=== PATIENT | female | born 1935 | race Caucasian/White ===

== ENCOUNTER 2022-10-23 13:03 | Outpatient (REF) | payer MEDICARE, SELFPAY ==
[2022-10-23 14:12] LABS: HCT 39.3 % (36.0-46.0); HGB 12.7 g/dL (11.2-15.7); MCH 30.3 pg (27.0-33.0); MCHC 32.3 % (32.0-36.0); MCV 94 fL (80-95); MPV 8.6 fL (8.0-11.0); Platelet Count 458 10^3/uL (130-400); RBC 4.19 10^6/uL (3.93-5.22); RDW 13.3 % (11.7-14.6); RDW-SD 45.4 fL
[2022-10-23 14:23] LABS: Iron 70 ug/dL (50-170); Total Iron Binding Capacity 256 ug/dL (250-450); Transferrin Sat 27 % (15-50)
[2022-10-23 14:38] LABS: ALT 14 U/L (14-59); AST 13 U/L (15-37); Albumin 3.1 g/dL (3.4-5.0); Alkaline Phosphatase 63 U/L (46-116); Anion Gap 7.2 mmol/L (3-11); BUN 16 mg/dL (7-18); Bilirubin, Total 0.3 mg/dL (0.2-1.0); CO2 28.8 mmol/L (21.0-32.0); Calcium 10.4 mg/dL (8.5-10.1); Chloride 103 mmol/L (98-107); Estimated GFR 54.87 (mL/min/1.73m2); Ferritin 66 ng/mL (8-252); Folate 7.7 ng/mL (8.6-20.0); Glucose 119 mg/dL (74-106); Sodium 139 mmol/L (136-145); TSH (W/Ref FT4) 2.49 uIU/mL (0.36-3.74); Total Protein 7.5 g/dL (6.4-8.2)
== END 2022-10-23 13:04 | disposition home or self-care (01) ==
LOC: NCHCN 13:03
PROVIDERS: Visit Provider Family Medicine
DX: I10 Essential (primary) hypertension (principal); F10.10 Alcohol abuse, uncomplicated; R53.1 Weakness; J44.9 Chronic obstructive pulmonary disease, unspecified; I49.9 Cardiac arrhythmia, unspecified
CPT/HCPCS: 80053; 85027; 82728; 82746; 83540; 83550; 84443

== ENCOUNTER 2022-11-09 03:21 | Outpatient (CLI) | payer MEDICARE, SELFPAY ==
[2022-11-09] MEDS: Inhaler, Assist Device 1 EACH MC (16:18)
[2022-11-09] MEDS: Albuterol HFA 18 GM 200 PUFF INH IH (16:18)
--- NOTE | 2022-11-10 12:53 | W.PFT ---
Date of service: 11/09/22 Time of Service: 15:04 Pulmonary Function Test Result Indications: COPD Interpretation Spirometry: There is no airflow limitation. There is no bronchodilator response.. Lung Volumes: Normal lung volumes Diffusion Capacity: Normal diffusion Airway Pressure: Normal airways resistance Impression Normal pulmonary function testing. Clinical Correlation therefore is recommended.
== END 2022-11-09 03:22 | disposition home or self-care (01) ==
LOC: RT 03:21
PROVIDERS: PCP Family Medicine; Visit Provider Family Medicine
DX: J44.9 Chronic obstructive pulmonary disease, unspecified (principal)
CPT/HCPCS: 94060; 94726; 94729

== ENCOUNTER 2022-11-25 14:00 | Outpatient (REF) | payer MEDICARE, SELFPAY ==
[2022-11-25 15:12] LABS: HCT 36.7 % (36.0-46.0); HGB 11.7 g/dL (11.2-15.7); MCH 29.7 pg (27.0-33.0); MCHC 31.9 % (32.0-36.0); MCV 93 fL (80-95); MPV 8.7 fL (8.0-11.0); Platelet Count 435 10^3/uL (130-400); RBC 3.94 10^6/uL (3.93-5.22); RDW 13.5 % (11.7-14.6); RDW-SD 46.3 fL; WBC 9.04 10^3/uL (4.4-10.8)
[2022-11-25 15:47] LABS: Calcium 10.1 mg/dL (8.5-10.1)
== END 2022-11-25 14:01 | disposition home or self-care (01) ==
LOC: NCHCN 14:00
PROVIDERS: PCP Family Medicine; Visit Provider Family Medicine
DX: F41.8 Other specified anxiety disorders (principal); I10 Essential (primary) hypertension; R53.1 Weakness
CPT/HCPCS: 85027; 82310; 82746

== ENCOUNTER → 2023-01-08 00:05 | Outpatient (CLI) | payer MEDICARE, SELFPAY ==
--- NOTE | 2023-01-08 13:54 | DI.US_ITS ---
APPROVED REPORT EXAM: Comprehensive 2D, Doppler, and color-flow Echocardiogram Patient Location: Out-Patient Machine Operators: Kenneth Young RDMS, RVT Indications: tricuspid regurg Other Information Study Quality: Good Conclusion Normal left ventricular wall thickness and chamber size. Ejection fraction is 55 to 60%. Wall motio n is normal Normal right ventricular size and systolic function Both atria are normal in size Normal tricuspid valve with mild to moderate regurgitation. Estimated right ventricular systolic pre ssure is 35 mmHg There is no other additional structural or hemodynamically significant valvular disease Wall motion Left Ventricle The left ventricle is normal size. The left ventricular systolic function is normal. The left ventric ular ejection fraction is within the normal range. There is normal left ventricular wall thickness. T here is normal LV segmental wall motion. There is no ventricular septal defect visualized. LVEF is 55 %. Right Ventricle The right ventricle is normal size. The right ventricular systolic function is normal. The RVSP is 35 .4 mmHg. Atria The left atrium size is normal. The right atrium size is normal. The interatrial septum is intact wit h no evidence for an atrial septal defect. Aortic Valve The aortic valve is normal in structure. Aortic valve is trileaflet. There is no aortic valvular sten osis. Mitral Valve Mild mitral annular calcification. No evidence of mitral valve stenosis. Trace mitral regurgitation. Tricuspid Valve The tricuspid valve is normal in structure. There is no tricuspid valve stenosis. Mild to moderate tr icuspid regurgitation. Pulmonic Valve The pulmonary valve is normal in structure. There is no pulmonic valvular stenosis. Mild pulmonic reg urgitation. Great Vessels The aortic root is normal in size. The ascending aorta is normal in size. Aortic arch is normal in ca liber. IVC is normal in size and collapses >50% with inspiration. Pericardium There is no pericardial effusion. 2D Dimensions IVSD d PLAX 1.04 cm F: 0.6-1.0 LVPW d PLAX 1.04 cm F: 0.6 - 1.0 LVID d PLAX 3.91 cm F: 3.8 - 5.2 LVDs 2.80 cm F: 2.2 - 3.5 Ao Root d 3.31 cm F: 2.7 - 3.3 RA Area A4C 13.08 cm2 Ao Asc Diam d 3.11 cm F: 2.3 - 3.1 LV EF Teichholz 54.8 % FS 27.95 % M-Mode TAPSE 1.74 cm (M/F) >1.7 LV Diastology MV E' medial 0.055 (>0.07 m/s) E/A Ratio 0.6 LV E/e MED 8.98 (<14) MV E Vmax 0.49 (0.4-1.3 m/s) MV E' lateral 0.053 (>0.1 m/s) MV A Vmax 0.85 (0.4-1.3 m/s) LV E/e LAT 9.36 (<14) MV E/E' medial 8.98 MV E/E' lateral 9.36 MV (E/E' average) 9.17 Aortic Valve LVOT Vmax 0.86 m/s AoV Area Vmax 2.48 cm2 LVOT Peak Grad 2.9 mmHg LVOT Mean Grad 1.6 mmHg LVOT Diam s 2.00 cm AoV Vmax 1.11 m/s Velocity Ratio 0.77 AoV Peak Grad 4.9 mmHg LVOT SV 55.41 mL AoV Mean Grad 3.0 mmHg AoV Area VTI 2.16 cm2 Mitral Valve MV DT 192 (160-240 msec) Pulmonary Valve PV Mean Grad 1.9 mmHg RVOT Peak Gr. 1.16 mmHg RVOT Mean Gr. 0.50 mmHg RVOT VTI 0.116 m RVOT Vmax 0.54 m/s Tricuspid Valve TR Peak Grad 32.3 mmHg TR Vmax 2.85 m/s RA Pressure 3.00 mmHg RVSP (TR) 35.4 mmHg
== END ==
PROVIDERS: PCP Family Medicine; Visit Provider Family Medicine
DX: I07.1 Rheumatic tricuspid insufficiency (principal)
CPT/HCPCS: 93306

== ENCOUNTER 2023-09-29 21:44 | Outpatient (REF) | payer MEDICARE, SELFPAY ==
[2023-09-29 22:03] LABS: BUN 17 mg/dL (7-18); CREATININE 0.9 mg/dL (0.55-1.02); Calcium 10.3 mg/dL (8.5-10.1); Chloride 105 mmol/L (98-107); Estimated GFR 61.87 (mL/min/1.73m2); Glucose 95 mg/dL (74-106); Magnesium 2.1 mg/dL (1.8-2.4); Potassium 4.5 mmol/L (3.5-5.1); Sodium 140 mmol/L (136-145)
== END 2023-09-29 21:45 | disposition home or self-care (01) ==
LOC: NCHCN 21:44
PROVIDERS: PCP Family Medicine; Visit Provider Family Medicine
DX: I48.0 Paroxysmal atrial fibrillation (principal)
CPT/HCPCS: 80048; 83735

== ENCOUNTER 2024-09-14 15:57 | Outpatient (REF) | payer MEDICARE, SELFPAY ==
[2024-09-14 21:53] LABS: Anion Gap 7.2 mmol/L (3-11); BUN 18 mg/dL (7-18); CO2 27.8 mmol/L (21.0-32.0); CREATININE 0.9 mg/dL (0.55-1.02); Calcium 10.5 mg/dL (8.5-10.1); Chloride 107 mmol/L (98-107); Estimated GFR 61.49 (mL/min/1.73m2); Glucose 91 mg/dL (74-106); Potassium 4.7 mmol/L (3.5-5.1); Sodium 142 mmol/L (136-145)
== END 2024-09-14 15:58 | disposition home or self-care (01) ==
LOC: NCHCN 15:57
PROVIDERS: PCP Family Medicine; Visit Provider Family Medicine
DX: I10 Essential (primary) hypertension (principal)
CPT/HCPCS: 80048

== ENCOUNTER 2024-10-24 13:03 | Observation (INO) | payer MEDICARE, SELFPAY ==
[2024-10-24] VITALS (37 sets, daily range): BP systolic 104–151; BP diastolic 46–88; PULSE 68–86; RESP 7–26; TEMP 36–36.9; O2SAT 88–97
--- NOTE | 2024-10-24 13:22 | DI.CT_ITS ---
Exam(s) CT ABDOMEN PELVIS CTA EXAM: CT ABDOMEN PELVIS CTA CLINICAL HISTORY: lower gi bleed. TECHNIQUE: Imaging Protocol: Axial CT angiography was performed with multi-slice acquisition and m ulti-planar and/or 3D reconstructions. CONTRAST MATERIAL: Intravenous: Omnipaque 350 Contrast volume:100mL Oral: No COMPARISON: No exams were available for comparison FINDINGS: ABDOMEN AND PELVIS: Abdomen: Celiac axis/mesenteric arteries: No evidence of occlusion or significant stenosis. Atherosclerotic ca lcification is seen in the superior mesenteric artery. Renal Arteries: No evidence of occlusion or significant stenosis. There is mild atherosclerotic calci fication at the origins of the renal arteries bilaterally. Aorta: No evidence of occlusion or significant stenosis. No aneurysm or dissection. Atherosclerotic calcification is seen. Pelvis: Iliac Arteries: No evidence of occlusion or significant stenosis. Atherosclerotic calcification is p resent. Common Femoral Arteries: No evidence of occlusion or significant stenosis. Atherosclerotic calcifica tion is present. ABDOMEN: Lung bases: Unremarkable. Liver: Normal density. No measurable mass. Portal, Superior Mesenteric, and Splenic Veins: Unremarkable. Gallbladder and Biliary Tract: Status post cholecystectomy. There is intra and extrahepatic bile ginny t dilatation. The common duct measures 1.7 cm. No choledocholithiasis is seen. Pancreas: Normal density, no abnormal calcifications or inflammatory process. Spleen: Normal. Adrenals: There is a 1.7 cm hypodense right adrenal nodule. There is mild thickening of the limbs of the left adrenal gland. There does appear to be a small 0.6 cm hypodense nodule on the left adrenal gland. Kidneys: Normal size, contour and axis. No radiodense stones or obstructive uropathy. There are tiny hypodensities in the kidneys bilaterally. They are too small for further characterization but likely reflect small cysts. No follow-up is recommended. Bowel: There is diverticulosis of the colon without evidence of acute diverticulitis. There is no ev idence of bowel obstruction or bowel wall thickening. There is no evidence of appendicitis. No evid ence of active gastrointestinal bleeding. Peritoneal Cavity: No ascites, collection or mesenteric inflammatory response. No free air. Lymph Nodes: Within normal limits. Bones: There is a left convex thoracolumbar scoliosis. Age-appropriate degenerative changes are seen in the spine. Soft Tissues: Unremarkable. PELVIS: Bladder: Symmetric distention, no gross wall thickening. Reproductive Organs: There is a 3.8 x 3 cm cyst on the right ovary. (Series 28, image 55). Lymph Nodes: Within normal limits. Bones: Within normal limits. IMPRESSION: 1. There is no evidence of active gastrointestinal bleeding at this time. 2. Colonic diverticulosis without evidence of acute diverticulitis. 3. 0.8 x 3 cm right ovarian cyst. Nonemergent pelvic ultrasound should be considered in this postmen opausal patient. 4. Status post cholecystectomy. There is intra and extrahepatic biliary ductal dilatation. This may be due to the post cholecystectomy state. No choledocholithiasis is seen. Follow-up as clinically appropriate. 5. Bilateral hypodense adrenal nodules likely reflecting adenomas. Nonemergent MRI may be obtained f or further characterization. RADIATION DOSE DELIVERED: 1,563.24mGy.cm Total DLP DATA REPOSITORY: All CT scans at this facility are submitted to the National Radiology Data Registry (NRDR) Dose Index Registry (DIR) with the [employer] (ACR). RADIATION OPTIMIZATION: All CT scans at this facility use at least one of these dose optimization te chniques: automated exposure control; mA and/or kV adjustment per patient size (includes targeted exa ms where dose is matched to clinical indication); or iterative reconstruction.
--- NOTE | 2024-10-24 13:24 | ED.GENADUL_ITS ---
Discharge Plan Disposition Patient Disposition: Admit to [facility] Condition: Stable Discharge Details Chief Complaint: GI Bleed Clinical Impression: Acute lower gastrointestinal bleeding Primary Care Provider: Zainab Burk ED Provider: Santy Clark Home Meds and New Rx's Prescriptions: No Action venlafaxine [Effexor XR] 37.5 mg capsule,extended release 24hr 112.5 mg PO DAILY Xarelto 20 mg tablet 20 mg PO DAILY Rx Instructions: must administer with evening meal diltiazem HCl 120 mg capsule,ext.rel 24h degradable 120 mg PO BID [facility] General Mode of arrival: EMS . Date/Time Provider Initiated Documentation: 10/24/24 13:04 . Limitations to Documentation: no limitations . Information obtained by: patient . History of Present Illness 89 year old F presents to the emergency department with the chief complaint of bloody bowel movements, described as moderate, Patient started experiencing this day(s) (4) and it has been constant. No relieving factors improve symptom(s), No exacerbating factors reported . Patient notes shortness of breath; denies fever/chills and nausea/vomiting. Patient did receive the following treatments prior to arrival, none Related Data Home Medications ?Medication ?Instructions ?Recorded ?Confirmed diltiazem HCl 120 mg 120 mg PO BID 10/24/24 10/24/24 capsule,extended release 24 hr, controlled rivaroxaban 20 mg tablet (Xarelto) 20 mg PO DAILY 10/24/24 10/24/24 venlafaxine 37.5 mg 112.5 mg PO DAILY 10/24/24 10/24/24 capsule,extended release 24 hr (Effexor XR) Allergies Allergy/AdvReac Type Severity Reaction Status Date / Time Penicillins Allergy Intermediate Hives Verified 10/24/24 13:11 General Stated Complaint: GI Bleed RAMOS: 2 Review of Systems All systems reviewed & are unremarkable except as noted in HPI and below Constitutional Constitutional: Denies chills, Denies fever(s) and Reports weakness Cardiovascular Cardiovascular: Denies chest pain and Reports dyspnea Respiratory Respiratory: Denies cough and Reports dyspnea Gastrointestinal Gastrointestinal: Denies abdominal pain, Reports hematochezia, Denies nausea and Denies vomiting Neurologic Neurologic: Reports weakness Psychiatric Psychiatric: Denies depression Exam Const General: no acute distress Orientation: alert HENMT Head: normal to inspection Ears: external ears normal General nose exam: external nose normal Mouth: moist mucous membranes Eyes General: appearance normal, both eyes and all related structures Neck Neck: normal visual inspection Resp Effort & Inspection: normal respiratory effort and able to speak in complete sentences Auscultation: clear to auscultation bilaterally Cardio Rate: regular rate GI Palpation: soft and nontender Skin General skin exam: no rashes or lesions noted Neuro General: patient alert and patient oriented x3 Extrem General: normal to inspection Psych Mental Status: mental status grossly normal Course Vital Signs Vital signs: Vital Signs Respiratory Rate 26 H 10/24/24 13:03 Temperature 36.3 C L 10/24/24 13:17 Temperature Source Oral 10/24/24 13:17 Pulse 71 10/24/24 13:17 Pulse 71 10/24/24 13:16 Respiratory Rate 16 10/24/24 13:17 Blood Pressure 138/49 L 10/24/24 13:17 Blood Pressure Mean 78 10/24/24 13:16 Blood Pressure Position Supine 10/24/24 13:17 Pulse Oximetry 95 10/24/24 13:17 Oxygen Delivery Method Room Air 10/24/24 13:17 Oxygen Flow Rate 0 10/24/24 13:17 Pain Level 0 10/24/24 13:17 Medical Decision Making 89-year-old female with a history of A-fib on rivaroxaban comes in with 4 days of diarrhea and bloody stools. Denies any severe abdominal pain. She is states she feels generally weak and has shortness of breath. Denies any recent travels or fevers, no chest pain or chest pressure. She has a soft nontender abdomen. Clear lung sounds and is alert and oriented x 4. Given the bloody stools that weakness and shortness of breath I suspect she could be anemic. Will check a CBC, CMP, type and screen and obtain a CTA of the abdomen pelvis to evaluate for evidence of active extravasation. Patient with mild anemia with hemoglobin 10.2. CTA without evidence of active extravasation. Patient is hemodynamically stable. On rectal exam does have a small amount of blood on exam from the rectum. No visible bleeding hemorrhoids. Given she is on anticoagulation will discuss with hospitalist about observation admission and holding her anticoagulation. Quality:SDOH Health Related Social Needs: No Data to Display PFSH All Active Problems (Updated 10/24/24 @ 16:04 by Santy Clark MD) Acute lower gastrointestinal bleeding (Acute) Social History Smoking/Tobacco Use Status: Never Smoking risk assessment performed?: Yes Alcohol Intake: current Alcohol Intake frequency: 0-2 drinks per day Alcohol type: wine Drug use: Never Substance use type: does not use Do you feel safe at home: Yes Do you feel safe in your relationship?: Yes
[2024-10-24 13:36] LABS: Abs Immature Grans 0.06 10^3/uL (0.0-0.06); Absolute Basophil Count 0.08 10^3/uL (0.0-0.2); Absolute Lymphocyte Count 1.92 10^3/uL (1.2-3.4); Basophils % 0.7 %; Eosinophils % 0.4 %; HCT 32.8 % (36.0-46.0); HGB 10.2 g/dL (11.2-15.7); Immature Grans % 0.5 %; Lymphocytes % 17.2 %; MCH 27.6 pg (27.0-33.0); MCHC 31.1 % (32.0-36.0); MCV 89 fL (80-95); MPV 8.5 fL (8.0-11.0); Monocytes % 7.5 %; Neutrophils % 73.7 %; Platelet Count 351 10^3/uL (130-400); RBC 3.69 10^6/uL (3.93-5.22); RDW 14.3 % (11.7-14.6); WBC 11.14 10^3/uL (4.4-10.8)
[2024-10-24 13:38] LABS: Absolute Eosinophil Count 0.04 10^3/uL (0.0-0.7); Absolute Monocyte Count 0.84 10^3/uL (0.1-0.8); Absolute Neutrophil Count 8.21 10^3/uL (1.2-6.7)
[2024-10-24 13:55] LABS: ALT 16 U/L (14-59); AST 11 U/L (15-37); Albumin 3.1 g/dL (3.4-5.0); Alkaline Phosphatase 78 U/L (46-116); Anion Gap 8.8 mmol/L (3-11); BUN 16 mg/dL (7-18); Bilirubin, Total 0.2 mg/dL (0.2-1.0); CO2 28.2 mmol/L (21.0-32.0); Calcium 9.7 mg/dL (8.5-10.1); Chloride 103 mmol/L (98-107); Estimated GFR 54.19 (mL/min/1.73m2); Glucose 151 mg/dL (74-106); Lipase 39 U/L (<78); Potassium 4.1 mmol/L (3.5-5.1); Sodium 140 mmol/L (136-145); Total Protein 7.2 g/dL (6.4-8.2)
[2024-10-24] MEDS: Normal Saline - Diluent 50 ML VIAL IJ (14:33)
[2024-10-24] MEDS: Omnipaque 350 MG/ML 100 ML BTL IJ (14:35)
[2024-10-24 14:51] LABS: INR 1.2 (0.9-1.1); PTT Activated 24.4 sec (20.6-30.2)
--- NOTE | 2024-10-24 15:56 | W.PM.HP.N ---
Date of service: 10/24/24 Time of Service: 15:56 Assessment and Plan Assessment and plan (1) Bright red blood per rectum: Status: Acute Assessment and plan: - Likely lower GI bleed given description of bright red blood - Stool occult positive in the emergency department - Without significant anemia as hemoglobin was 10.2, though last hemoglobin was from November 2022 which is 11.7 - No active bleed noticed in the emergency department or on CT angio of the abdomen pelvis - Hold Xarelto - Follow-up a.m. CBC - If patient does have recurrence of bloody bowel movement we will consult surgery for consideration of lower endoscopy (2) Afib: Status: Chronic Assessment and plan: - Continue home diltiazem - Hold Xarelto as noted above (3) Depression: Status: Chronic Assessment and plan: - Continue home Effexor (4) Sleep apnea: Status: Acute Assessment and plan: -CPAP HS History of Present Illness History of Present Illness Chief Complaint: BRBPR Narrative: 89-year-old female with a past medical history of A-fib on diltiazem and Xarelto and depression who presents to the emergency department complaints of 4 days of diarrhea and bloody stools. Patient states that over the last few days she has had a diarrhea with some bloody stools but denies any abdominal pain. She also complains of some weakness and shortness of breath denies any headache, lightheadedness, dizziness, chest pain, nausea or vomiting. In the emergency department the patient was noted as having normal vital signs, CBC with a hemoglobin of 10.2 and normal CMP. She did have positive stool occult, but CT angio of the abdomen pelvis did not show any acute GI bleeding. However, given description of bloody bowel movements patient being on Xarelto, emergency room physician paged hospitalist for admission of the patient to observation status for concern for bright red blood for rectum. Review of Systems All systems reviewed & are unremarkable except as noted in HPI and below PFSH All Active Problems (Updated 10/24/24 @ 17:28 by Candelario Godinez MD) Sleep apnea (Acute) Depression (Chronic) Afib (Chronic) Bright red blood per rectum (Acute) Acute lower gastrointestinal bleeding (Acute) Social History Smoking/Tobacco Use Status: Never Smoking risk assessment performed?: Yes Alcohol Intake: current Alcohol Intake frequency: 0-2 drinks per day Alcohol type: wine Drug use: Never Substance use type: does not use Do you feel safe at home: Yes Do you feel safe in your relationship?: Yes Meds Allergies and Home Medications Allergies Allergy/AdvReac Type Severity Reaction Status Date / Time Penicillins Allergy Intermediate Hives Verified 10/24/24 13:11 Home Medications ?Medication ?Instructions ?Recorded ?Confirmed ?Type diltiazem HCl 120 mg 120 mg PO BID 10/24/24 10/24/24 History capsule,extended release 24 hr, controlled rivaroxaban 20 mg tablet (Xarelto) 20 mg PO DAILY 10/24/24 10/24/24 History venlafaxine 37.5 mg 112.5 mg PO DAILY 10/24/24 10/24/24 History capsule,extended release 24 hr (Effexor XR) Exam Narrative Exam Narrative: well appearing older female sitting up in the chair in no acute distress, AOx4, heart RRR, lungs CTAB, abdomen soft, non-tender, non-distended Results Labs 10/24/24 13:30 10/24/24 13:30 Labs: Laboratory Results - last 24 hr 10/24/24 13:30 WBC 11.14 H RBC 3.69 L Hgb 10.2 L Hct 32.8 L MCV 89 MCH 27.6 MCHC 31.1 L RDW 14.3 Plt Count 351 MPV 8.5 Immature Gran % 0.5 Neutrophils % 73.7 Lymphocytes % 17.2 Monocytes % 7.5 Eosinophils % 0.4 Basophils % 0.7 Nucleated RBC % 0.0 Absolute Neutrophils 8.21 H Absolute Lymphocytes 1.92 Absolute Monocytes 0.84 H Absolute Eosinophils 0.04 Absolute Basophils 0.08 PT 12.0 H INR 1.2 H APTT 24.4 Sodium 140 Potassium 4.1 Chloride 103 Carbon Dioxide 28.2 Anion Gap 8.8 BUN 16 Creatinine 1.0 Est GFR (CKD-EPI 2020) 54.19 Glucose 151 H Calcium 9.7 Magnesium 2.0 Total Bilirubin 0.2 AST 11 L ALT 16 Alkaline Phosphatase 78 Total Protein 7.2 Albumin 3.1 L Lipase 39 ABO/Rh O Negative Antibody Screen NEGATIVE Last Vital Signs Temp 97.3 F L 10/24/24 13:17 Pulse 75 10/24/24 14:50 Resp 15 10/24/24 14:50 BP 122/53 L 10/24/24 14:16 Pulse Ox 94 10/24/24 14:50 Time Spent Time spent with Patient: >75 minutes Time was spent: preparing to see the patient(eg.review tests), obtaining and/or reviewing separately otained hiistory, ordering medications,tests, procedures, referring, communicating with other health youth career specialist, indepentently interpreting results, counseling the patient and care coordination
--- NOTE | 2024-10-24 18:03 | W.PC.ACHO ---
Registration Status: Primary Language: Preferred Language: ED Information & Data Chief Complaint GI Bleed 10/24/24 13:25 Triage Note pt with 1 week of bloody 10/24/24 13:17 diarrhea, no fever/chills, no abd pain, on blood thinners, weak today and appears SOB. Most Recent Vital Signs Temperature 36 C L 10/24/24 17:50 Temperature Source Temporal Artery Scan 10/24/24 17:50 Pulse 86 10/24/24 17:50 Pulse 84 10/24/24 17:01 Respiratory Rate 18 10/24/24 17:50 Respiratory Effort Normal 10/24/24 17:50 Respiratory Depth Normal 10/24/24 17:50 Respiratory Pattern Normal 10/24/24 17:50 Blood Pressure 127/61 10/24/24 17:50 Blood Pressure Mean 83 10/24/24 17:50 Blood Pressure Position Supine 10/24/24 13:17 Pulse Oximetry 95 10/24/24 17:50 Oxygen Delivery Method Room Air 10/24/24 17:50 Oxygen Flow Rate 0 10/24/24 17:50 Pain Level 0 10/24/24 17:50 Allergies Penicillins Allergy (Intermediate, Verified 10/24/24 13:11) Hives Precautions Isolation Standard precaution 10/24/24 13:18 Active Medications Generic Name Dose Route Start Last Admin Trade Name Mt PRN Reason Stop Dose Admin Iohexol 100 ml 10/24/24 14:45 10/24/24 14:35 Omnipaque 350 Mg/Ml 100 Ml Btl IJ 11/23/24 23:59 100 ml DIRECTED ADALBERTO Administration Sodium Chloride 50 ml 10/24/24 14:45 10/24/24 14:33 Normal Saline - Diluent 50 Ml Vial IJ 50 ml .FOR DI USE ADALBERTO Administration IV IV Catheter Type [Right Peripheral IV Antecubital] IV Catheter Type [Left Peripheral IV Antecubital] IV Catheter Gauge [Right 18 Antecubital] IV Catheter Gauge [Left 20 Antecubital] Diet Orders Category Date Time Status Regular/Normal [DIET] Nutrition 10/24/24 Dinner Active Diagnostics 10/24/24 Range/Units 13:30 WBC 11.14 H (4.4-10.8) 10^3/uL RBC 3.69 L (3.93-5.22) 10^6/uL Hgb 10.2 L (11.2-15.7) g/dL Hct 32.8 L (36.0-46.0) % MCV 89 (80-95) fL MCH 27.6 (27.0-33.0) pg MCHC 31.1 L (32.0-36.0) % RDW 14.3 (11.7-14.6) % Plt Count 351 (130-400) 10^3/uL MPV 8.5 (8.0-11.0) fL Immature Gran % 0.5 % Neutrophils % 73.7 % Lymphocytes % 17.2 % Monocytes % 7.5 % Eosinophils % 0.4 % Basophils % 0.7 % Nucleated RBC % 0.0 (0.0-0.3) % Absolute Neutrophils 8.21 H (1.2-6.7) 10^3/uL Absolute Lymphocytes 1.92 (1.2-3.4) 10^3/uL Absolute Monocytes 0.84 H (0.1-0.8) 10^3/uL Absolute Eosinophils 0.04 (0.0-0.7) 10^3/uL Absolute Basophils 0.08 (0.0-0.2) 10^3/uL PT 12.0 H (9.1-11.1) sec INR 1.2 H (0.9-1.1) APTT 24.4 (20.6-30.2) sec Sodium 140 (136-145) mmol/L Potassium 4.1 (3.5-5.1) mmol/L Chloride 103 (98-107) mmol/L Carbon Dioxide 28.2 (21.0-32.0) mmol/L Anion Gap 8.8 (3-11) mmol/L BUN 16 (7-18) mg/dL Creatinine 1.0 (0.55-1.02) mg/dL Est GFR (CKD-EPI 2020) 54.19 (mL/min/1.73m2) Glucose 151 H (74-106) mg/dL Calcium 9.7 (8.5-10.1) mg/dL Magnesium 2.0 (1.8-2.4) mg/dL Total Bilirubin 0.2 (0.2-1.0) mg/dL AST 11 L (15-37) U/L ALT 16 (14-59) U/L Alkaline Phosphatase 78 (46-116) U/L Total Protein 7.2 (6.4-8.2) g/dL Albumin 3.1 L (3.4-5.0) g/dL Lipase 39 (<78) U/L ABO/Rh O Negative Antibody Screen NEGATIVE Intake and Output - 24 Hour Total 10/24/24 12:54 thru 10/24/24 17:50 Weight 81.8 kg Other: Urine Appearance Clear Stool Size Small Stool Characteristics Soft Formed Brown Bloody Emesis Description None Falls Risk Assessment History of Falls Previous History 10/24/24 17:50 Contributing Factors Unstable,Incontinence 10/24/24 17:50 Ambulatory Aids Independent 10/24/24 17:50 Tubes/Lines W/no contributing factors 10/24/24 17:50 Gait Evaluation W/no contributing factors 10/24/24 17:50 Cognition No cognitive impairment 10/24/24 17:50 Fall Total Score 41 10/24/24 17:50 Level of Risk Moderate Risk 10/24/24 17:50 Problems Sleep apnea (Acute) Depression (Chronic) Afib (Chronic) Bright red blood per rectum (Acute) v v v v v v v v v Sending and/or Receiving Nurses: Please use comment section below to note any information pertinent to the patient hand-off not included above. Information / Comments: Report called at [id number]. Bo red blood reported in stool. pt reported to be slightly unsteady on feet. Report received from: Rach Crawford ED RN.
--- NOTE | 2024-10-24 18:14 | RESPIRATORY ---
Spoke with patient about DAYNE diagnosis and pt advised she had just received her new home CPAP machine a couple days ago. She is unsure of her settings or who her DME is. She uses nasal pillows but advised that the two nights she wore the machine her mouth kept opening and it would wake her up. Her daughter has ordered her some type of head/chin strap to keep her mouth from opening. RT suggested she reach out to DME and request a different interface (one that covers her mouth and nose) so she doesn't continue to have this issue. Pt has no one available to bring her new machine in as her daughter is out of the country on a trip. RT offered use of hospital CPAP machine or supplemental O2 but patient declined saying she would be fine. RT reminded pt that if she changes her mind this evening to have the night RT paged and they can come assess her to determine her needs at that time. Night hospitalist notified.
[2024-10-24] MEDS: Normal Saline Flush 10 ML SYR IVP ×2 (19:56)
[2024-10-24] MEDS: dilTIAZem CD 120 MG CAPCR PO (19:56)
[2024-10-25 06:32] LABS: HCT 27.3 % (36.0-46.0); HGB 8.7 g/dL (11.2-15.7); MCH 28.1 pg (27.0-33.0); MCHC 31.9 % (32.0-36.0); MCV 88 fL (80-95); MPV 8.8 fL (8.0-11.0); Platelet Count 334 10^3/uL (130-400); RDW 14.3 % (11.7-14.6); RDW-SD 45.6 fL; WBC 8.57 10^3/uL (4.4-10.8)
[2024-10-25 07:13] LABS: BUN 12 mg/dL (7-18); CREATININE 0.7 mg/dL (0.55-1.02); Calcium 9.4 mg/dL (8.5-10.1); Chloride 109 mmol/L (98-107); Estimated GFR 83.13 (mL/min/1.73m2); Glucose 107 mg/dL (74-106); Magnesium 2.1 mg/dL (1.8-2.4); Potassium 3.8 mmol/L (3.5-5.1); Sodium 143 mmol/L (136-145)
[2024-10-25 07:29] VITALS: BP 112/73; PULSE 73; RESP 19; TEMP 36.5; O2SAT 95
[2024-10-25] MEDS: dilTIAZem CD 120 MG CAPCR PO (08:21)
[2024-10-25] MEDS: Venlafaxine 37.5 MG CAPCR 112.5 MG PO (08:21)
[2024-10-25] MEDS: Normal Saline Flush 10 ML SYR IVP ×2 (08:22)
[2024-10-25 10:11] LABS: HCT 29.4 % (36.0-46.0); HGB 9.3 g/dL (11.2-15.7)
--- NOTE | 2024-10-25 10:47 | DSE_ITS ---
Date of service: 10/25/24 Time of Service: 10:47 DS: Diagnosis Discharge Diagnosis (1) Bright red blood per rectum: Status: Acute (2) Afib: Status: Chronic (3) Depression: Status: Chronic (4) Sleep apnea: Status: Acute Discharge Plan Disposition Patient Disposition: Home Condition: Good Discharge Details Reason For Visit: Lower GI bleed Admit Date/Time: 10/24/24 15:56 Admit Provider: Candelario Godinez Attending Provider: Candelario Godinez Primary Care Provider: Zainab Burk Hospital Course Hospital Course: Patient initially presented due to bloody diarrhea for over the previous few day s. In the emergency department she had normal vital signs, normal hemoglobin of 10.2, but was noted as having stool occult positive. She did not have active bleeding during hospitalization, and while hemoglobin went down to 8.7, repeat check was 9.3, patient did not have any additional episodes of bleeding during hospitalization. Therefore was determined the patient was stable for discharge home and she will have referral to general surgery for consideration of outpatient colonoscopy. Home Meds and New Rx's Prescriptions: Continued venlafaxine [Effexor XR] 37.5 mg capsule,extended release 24hr 112.5 mg PO DAILY diltiazem HCl 120 mg capsule,ext.rel 24h degradable 120 mg PO BID Held Xarelto 20 mg tablet 20 mg PO DAILY Hold Instructions: Resume on 10/27/24. Rx Instructions: must administer with evening meal Discharge Instructions Referrals: Evangelista Hodgson MD [ [facility] STAFF PHYSICIAN] - (GI bleed on xarelto, noelle diverticular vs internal hemorrhoids) Activity:: Activity as Tolerated Equipment/Supplies:: No Equipment Needed Diet:: As Tolerated Discharge Orders Discharge Orders: Discharge Order (Routine); Ordered 10/25/24 Ordered By: Candelario Godinez DS: Summary Time Spent with Patient providing and/or coordinating discharge services: Greater than 30 minutes Status at Discharge Functional status at discharge: independent ambulation Overall status at discharge: patient is back to baseline Mental Status: mental status grossly normal Speech and Movement: speech and movement normal Mood: congruent mood Affect: normal affect Quality:SDOH Health Related Social Needs: No Data to Display Exam Narrative Exam Narrative: well appearing older female sitting up in the chair in no acute distress, AOx4, heart RRR, lungs CTAB, abdomen soft, non-tender, non-distended Psych Mental Status: mental status grossly normal Speech and Movement: speech and movement normal Mood: congruent mood Affect: normal affect DS: Data Vitals/I&O Vitals and I&O: Vital Signs Temperature 97.7 F 10/25/24 07:29 Temperature Source Temporal Artery Scan 10/25/24 07:29 Pulse 73 10/25/24 07:29 Pulse 84 10/24/24 17:01 Respiratory Rate 19 10/25/24 07:29 Respiratory Effort Normal 10/24/24 17:50 Respiratory Depth Normal 10/24/24 17:50 Respiratory Pattern Normal 10/24/24 17:50 Blood Pressure 112/73 10/25/24 07:29 Blood Pressure Mean 86 10/25/24 07:29 Blood Pressure Position Supine 10/24/24 13:17 Pulse Oximetry 95 10/25/24 07:29 Oxygen Delivery Method Room Air 10/25/24 07:29 Oxygen Flow Rate 0 10/25/24 07:29 Pain Level 0 10/24/24 22:54 Intake & Output 10/24/24 10/25/24 10/25/24 17:59 05:59 17:59 Output Total 250 / 250 400 / 400 Balance -250 / -250 -400 / -400 Weight 180 lb 5.41 oz Output: Urine 250 / 250 400 / 400 Other: Urine Color Pale Yellow Yellow Urine Appearance Clear Clear Clear Urine Odor Normal Normal Stool Size Small Stool Characteristics Soft Formed Brown Bloody Emesis Description None Data Completed and Pending Labs on day of discharge: Labs from last 24 hours 10/25/24 10/25/24 10/24/24 10:03 06:09 13:30 WBC 8.57 11.14 H RBC 3.10 L 3.69 L Hgb 9.3 L 8.7 L 10.2 L Hct 29.4 L 27.3 L 32.8 L MCV 88 89 MCH 28.1 27.6 MCHC 31.9 L 31.1 L RDW 14.3 14.3 Plt Count 334 351 MPV 8.8 8.5 Immature Gran % 0.5 Neutrophils % 73.7 Lymphocytes % 17.2 Monocytes % 7.5 Eosinophils % 0.4 Basophils % 0.7 Nucleated RBC % 0.0 Absolute Neutrophils 8.21 H Absolute Lymphocytes 1.92 Absolute Monocytes 0.84 H Absolute Eosinophils 0.04 Absolute Basophils 0.08 PT 12.0 H INR 1.2 H APTT 24.4 Sodium 143 140 Potassium 3.8 4.1 Chloride 109 H 103 Carbon Dioxide 27.0 28.2 Anion Gap 7.0 8.8 BUN 12 16 Creatinine 0.7 1.0 Est GFR (CKD-EPI 2020) 83.13 54.19 Glucose 107 H 151 H Calcium 9.4 9.7 Magnesium 2.1 2.0 Total Bilirubin 0.2 AST 11 L ALT 16 Alkaline Phosphatase 78 Total Protein 7.2 Albumin 3.1 L Lipase 39 ABO/Rh O Negative Antibody Screen NEGATIVE PFSH All Active Problems (Updated 10/24/24 @ 17:28 by Candelario Godinez MD) Sleep apnea (Acute) Depression (Chronic) Afib (Chronic) Bright red blood per rectum (Acute) Acute lower gastrointestinal bleeding (Acute) Social History Smoking/Tobacco Use Status: Never Smoking risk assessment performed?: Yes Alcohol Intake: current Alcohol Intake frequency: 0-2 drinks per day Alcohol type: wine Drug use: Never Substance use type: does not use Housing: house Do you feel safe at home: Yes Do you feel safe in your relationship?: Yes Time Spent with Patient Time Spent with Patient: <45 minutes Time was spent: preparing to see the patient(eg.review tests), obtaining and/or reviewing separately otained hiistory, ordering medications,tests, procedures, referring, communicating with other health medical care administrator, indepentently interpreting results, counseling the patient and care coordination
[2024-10-25 11:31] VITALS: BP 124/62; PULSE 75; RESP 14; TEMP 36.2; O2SAT 97
--- NOTE | 2024-10-25 12:01 | PDOC.CMPRO ---
Date of service: 10/25/24 Time of Service: 12:01 Care Management Progress Note Progress Note Text Progress Note Text: Gabriella presented to the ED yesterday afternoon with c/o weakness and having bloody stools for 4 days. She stated to that she was feeling very weak and was really scared, so she called EMS. Gabriella did not have any further bloody stools over night. She stated to that she is happy to be going home. She is well supported in her community by her daughter and many friends. Gabriella did not feel the need for any extra community supports. She lives in a single family home, close to her daughter. She does not require a cane or a walker, but does tire easily. Discharge Potential Discharge Needs: PCP F/U Appt and Surgical F/U Appt (referral sent to general surgery) Anticipated Barriers to Discharge: None Identified Patient/Family Education Needs: Review discharge instructions, discuss Ask Me Three Transportation: Private vehicle Plan: Gabriella will be discharged home this afternoon with no new services. She will f/u with her PCP and with the general surgeon and continue per her plan of care. Gabriella will transport home in a private vehicle with her family. Social Determinants of Health Screening Will the Patient Participate in the Screening?: Unable to obtain
--- NOTE | 2024-10-25 13:31 | CHAPLAIN ---
Gabriella was very pleasant. She was up in the chair and happy to tell me that she's going later home today.
[2024-10-25 20:13] LABS: Campylobacter PCR Negative (Negative); Salmonella PCR Negative (Negative); Shiga Toxin PCR Negative (Negative); Shigella/Enteroinvasive Ecoli Negative (Negative)
== END 2024-10-25 12:43 | disposition home or self-care (01) ==
LOC: ER 16:04 → MS 17:14
PROVIDERS: Admitting Provider Family Medicine; Emergency Provider Emergency Medicine; PCP Family Medicine; Responsible Provider Family Medicine; Visit Provider Family Medicine
DX: K62.5 Hemorrhage of anus and rectum (principal); I48.91 Unspecified atrial fibrillation; G47.30 Sleep apnea, unspecified; F32.A Depression, unspecified; R53.1 Weakness; R06.02 Shortness of breath; R19.7 Diarrhea, unspecified
CPT/HCPCS: 00123; 36415; 80048; 80053; 83690; 85027; 86850; 86900; 86901; 87505; 99285; 74174; 83735; 85014; 85018; 85025; 85610; 85730; 99223; 99239; G0378; J3490

== ENCOUNTER → 2025-03-01 14:25 | Outpatient (BNVA) | payer MEDICARE, SELFPAY | PROVIDERS: PCP Family Medicine; Referring Provider Family Medicine; Visit Provider Surgery | DX: R19.8 Other specified symptoms and signs involving the digestive system and abdomen (principal) | CPT/HCPCS: 99213 ==

== ENCOUNTER 2025-03-22 14:17 | Outpatient (REF) | payer MEDICARE, SELFPAY ==
[2025-03-22 15:07] LABS: HCT 40.4 % (36.0-46.0); HGB 12.0 g/dL (11.2-15.7); MCH 23.8 pg (27.0-33.0); MCHC 29.7 % (32.0-36.0); MCV 80 fL (80-95); MPV 9.0 fL (8.0-11.0); Platelet Count 460 10^3/uL (130-400); RBC 5.04 10^6/uL (3.93-5.22); RDW-SD 63.7 fL; WBC 9.53 10^3/uL (4.4-10.8)
[2025-03-22 15:34] LABS: RDW 22.3 % (11.7-14.6)
== END 2025-03-22 14:18 | disposition home or self-care (01) ==
LOC: NCHCN 14:17
PROVIDERS: PCP Family Medicine; Visit Provider Family Medicine
DX: D64.9 Anemia, unspecified (principal)
CPT/HCPCS: 85027

== ENCOUNTER → 2025-04-26 01:10 | Outpatient (CLI) | payer MEDICARE, SELFPAY ==
--- NOTE | 2025-04-26 | DI.US_ITS ---
Exam(s) US PELVIS TRANSVAGINAL EXAM: US PELVIS TRANSVAGINAL CLINICAL HISTORY: HX OVARIAN CYST, Z87.42, PERSONAL H/O DISEASE TECHNIQUE: Transabdominal and transvaginal imaging was performed using standard protocol. COMPARISON: CT CT ABDOMEN PELVIS CTA from 10/24/2024 FINDINGS: Transabdominal images are limited by the patient's body habitus and lack of urinary bladder distension. UTERUS: Anteverted. 6.0 x 3.5 x 4.4 cm Endometrium: 4 mm Myometrium: Fibroid measuring 11 millimeters in the lower uterine segment. Cervix: Unremarkable. OVARIES: Not visualized. On the previous CT, the right ovary is located high in the pelvis, near the level of the iliac crest. The left ovary is obscured by bowel gas. There are multiple large diverticula noted on the prior CT. No hyperemia. CUL-DE-SAC: Free fluid: None. IMPRESSION: 1. Normal size uterus with small fibroid. Endometrium measures 4 millimeters.. 2. the ovaries were unable to be visualized. DATA REPOSITORY:
== END ==
LOC: DI 01:10
PROVIDERS: PCP Family Medicine; Visit Provider Family Medicine
DX: Z09 Encounter for follow-up examination after completed treatment for conditions other than malignant neoplasm (principal); Z87.42 Personal history of other diseases of the female genital tract
CPT/HCPCS: 76830; 76856

== ENCOUNTER → 2025-05-16 09:03 | Outpatient (CLI) | payer MEDICARE, SELFPAY ==
--- NOTE | 2025-05-16 | DI.CT_ITS ---
Exam(s) CT PELVIC W EXAM: CT PELVIC W CLINICAL HISTORY: RT CYST OF OVARY,N83.201,F/U CTA,NOT SEEN ON US. TECHNIQUE: Imaging Protocol: Axial computed tomography images with coronal and sagittal reformatted images were created and reviewed. CONTRAST MATERIAL: Intravenous: Omnipaque 350 Contrast volume:100 ml Contrast route:IV - Oral: yes / COMPARISON: CT CT ABDOMEN PELVIS CTA from 10/24/2024 FINDINGS: Bladder: No gross wall thickening. No stones.No evidence of mass. Bowel: No obstruction or bowel wall thickening. Severe diverticulosis noted. No diverticulitis. There is a large quantity of stool in the rectum, otherwise normal quantity of stool. Peritoneal cavity: No ascites, collection or mesenteric inflammatory response. Reproductive: The uterus and left ovary are unremarkable. There is a cystic structure noted in the right upper pelvis, at the level of the iliac crest measuring 2.5 x 5 x 3.5 cm. This has increased when compared with the previous exam. This may represent an ovarian cyst versus mesenteric cyst. Vasculature: No evidence of aortic or iliac artery aneurysm. Bones: There are advanced degenerative changes in the lower lumbar spine as well as scoliosis. No acute findings. Soft tissues: No acute findings. IMPRESSION: Interval increase in size of the cyst which is located in the right upper pelvis at the level of the iliac crest.. This may represent a in the barium in cyst versus mesenteric cyst. There are no suspicious features. RADIATION DOSE DELIVERED: 257.51mGy.cm Total DLP DATA REPOSITORY: All CT scans at this facility are submitted to the National Radiology Data Registry (NRDR) Dose Index Registry (DIR) with the [employer] ([employer]). RADIATION OPTIMIZATION: All CT scans at this facility use at least one of these dose optimization techniques: automated exposure control; mA and/or kV adjustment per patient size (includes targeted exams where dose is matched to clinical indication); or iterative reconstruction.
[2025-05-16] MEDS: Barium Sulfate 2% W/V-Berry Smoothie 450 ML BTL PO (10:08)
[2025-05-16] MEDS: Normal Saline - Diluent 50 ML VIAL IJ (12:04)
[2025-05-16] MEDS: Omnipaque 350 MG/ML 100 ML BTL IJ (12:04)
== END ==
LOC: DI 09:03
PROVIDERS: PCP Family Medicine; Visit Provider Family Medicine
DX: N83.201 Unspecified ovarian cyst, right side (principal)
CPT/HCPCS: 72193; 82565; J3490